=== PATIENT | male | born 1980 | race Hispanic/Latino ===

== ENCOUNTER 2021-10-25 05:50 | Day surgery (SDC) | payer MEDICARE ==
[2021-10-17 14:29] LABS: EOSINOPHILS % (AUTO) 15.5 % (0.0-8.0); LYMPHOCYTES % (AUTO) 14.3 % (21.0-51.0); MEAN CORPUSCULAR HEMOGLOBIN 27.8 pg (27.0-33.0); MEAN CORPUSCULAR HGB CONC 31.2 g/dL (32.0-36.0); MEAN CORPUSCULAR VOLUME 88.9 fL (79-99); MONOCYTES % (AUTO) 8.6 % (3.0-13.0); NEUTROPHILS % (AUTO) 60.3 % (40.0-77.0); PLATELET COUNT (AUTO) 254 K/uL (130-400); RED BLOOD CELL COUNT(AUTO) 4.61 MIL/uL (4.50-6.20); RED CELL DISTRIBUTION WIDTH 20.2 % (11.0-15.5); WHITE BLOOD COUNT (AUTO) 6.8 K/uL (4.8-10.8)
[2021-10-17 14:46] LABS: INR 1.47 (0.85-1.15); PROTHROMBIN TIME 15.7 SEC (9.6-11.6)
[2021-10-17 14:47] LABS: PARTIAL THROMBOPLASTIN TIME 33.3 SEC (26.3-35.5)
[2021-10-17 14:50] LABS: CREATININE 1.4 mg/dL (0.5-1.5)
[2021-10-18 11:04] VITALS: BP 78/66
[2021-10-19 06:05] VITALS: BP 96/62
[~2021-10-25] VITALS: Ht 177.8 cm; Wt 74.1 kg
[2021-10-25] VITALS (9 sets, daily range): BP systolic 80–103; BP diastolic 58–76
[~2021-10-25 05:50] MED LIST: 0.9%NACL 1000ML 1,000 ML IV ONE; 0.9%NACL 1000ML 1,000 ML IV SCH; ALLO100T PO; AMIO200T68 PO; APIX5TAB PO; CEFAZOLIN SODIUM 1 GM VIAL IVP ONE; CYAN-52 PO; DIGO125T71 PO; FAMO40TA7 PO; FOLI0.8T3 PO; FOLI400T4 PO; METO-408 PO; SPIR25TA6 PO; TORS20TA4 PO
[2021-10-25] MEDS ORDERED: 0.9%NACL 1000ML 1,000 ML IV ONE (06:14)
[2021-10-25] MEDS ORDERED: BUPIVACAINE/PF 0.25% 30ML VIAL IJ ONE (07:24)
[2021-10-25] MEDS ORDERED: MEPERIDINE-PF 25 MG/ML SYG ONE ×2 (07:24→08:32)
[2021-10-25] MEDS ORDERED: CEFAZOLIN SODIUM 1 GM VIAL ONE (07:24)
[2021-10-25] MEDS ORDERED: MIDAZOLAM HCL 1 MG/ML 2ML VIAL ONE ×2 (07:24→08:33)
[2021-10-25] MEDS ORDERED: LIDOCAINE HCL 400MG/20ML VIAL ONE (07:25)
[2021-10-25] MEDS ORDERED: DOPAMINE HCL 400 MG/D5%-WATER 0 ML IV ONE (07:46)
[2021-10-25] MEDS ORDERED: ACETAMINOPHEN WITH CODEINE 1 TAB TAB PO PRN (09:30)
[2021-10-25] MEDS ORDERED: TRAM50TA4 PO (09:32)
== END 2021-10-25 12:36 | disposition home or self-care (01) ==
LOC: DAH 05:50
PROVIDERS: ATTEND Internal Medicine Cardiovascular Disease
DX: T82.111A Breakdown (mechanical) of cardiac pulse generator (battery), initial encounter (principal); I42.0 Dilated cardiomyopathy; I11.0 Hypertensive heart disease with heart failure; I50.42 Chronic combined systolic (congestive) and diastolic (congestive) heart failure; G47.33 Obstructive sleep apnea (adult) (pediatric); E11.9 Type 2 diabetes mellitus without complications; I48.0 Paroxysmal atrial fibrillation; M10.9 Gout, unspecified; Z90.49 Acquired absence of other specified parts of digestive tract; Z95.0 Presence of cardiac pacemaker; Z79.82 Long term (current) use of aspirin; Z79.899 Other long term (current) drug therapy; Z79.01 Long term (current) use of anticoagulants; Y83.8 Other surgical procedures as the cause of abnormal reaction of the patient, or of later complication, without mention of misadventure at the time of the procedure
CPT/HCPCS: 80048; 85025; 85610; 85730; 36415; 93005; 82948; 74018; 71045; 33263; J7030 ×2; C1721; J0690; J3490 ×2; J2250 ×2; J2175 ×2; A4215; A4222; A4221; A4663; A4216; A4606; A4223 ×3; 99156; 99157; J1265